=== PATIENT | male | born 1960 | race Caucasian/White ===

== ENCOUNTER 2023-07-23 05:51 | Emergency (ER) | payer MEDICAID ==
[~2023-07-23] VITALS: Ht 175.3 cm; Wt 122.0 kg
--- NOTE | 2023-07-23 06:36 | NUR ---
during general assessment pt stated he does not have any health conditions, only take OTC medications (ibuprofen, benadryl and cough syrup). at end of assessment pt says "i have been seeing things moving the last 2 days. i realize they arent real but i see bugs and insects crawling on the floor". pt says he has no psych hx.
[2023-07-23 07:50] LABS: BASOPHILS % (AUTO) 0.3 % (0-1); EOSINOPHILS # (AUTO) 0.1 X10'3 (0-0.9); EOSINOPHILS % (AUTO) 0.4 % (0-6); HEMATOCRIT 39.8 % (42.0-52.0); HEMOGLOBIN 13.4 g/dl (14.0-17.9); LYMPHOCYTES # (AUTO) 1.3 X10'3 (1.1-4.8); MEAN CORPUSCULAR HEMOGLOBIN 26.9 PG (27.0-31.0); MEAN CORPUSCULAR HGB CONC 33.6 g/dL (33.0-36.5); MEAN CORPUSCULAR VOLUME 80.2 FL (78-98); MEAN PLATELET VOLUME 7.6 FL (7.4-10.4); MONOCYTES # (AUTO) 1.2 X10'3 (0-0.9); MONOCYTES % (AUTO) 8.8 % (2-12); NEUTROPHILS # (AUTO) 10.7 X10'3 (1.8-7.7); NEUTROPHILS % (AUTO) 80.5 % (42-75); PLATELET COUNT 344 X10'3 (140-440); RED BLOOD COUNT 4.96 X10'6 (4.70-6.10); RED CELL DISTRIBUTION WIDTH 12.8 % (11.5-14.5); WHITE BLOOD COUNT 13.2 X10'3 (4.5-11.0)
[2023-07-23] MEDS ORDERED: azithromycin 250mg tablet PO ONE (08:10)
[2023-07-23] MEDS ORDERED: benzonatate 100mg capsule PO ONE (08:10)
[2023-07-23] MEDS ORDERED: BENZ-38 PO ×2 (08:14)
[2023-07-23] MEDS ORDERED: AZIT-164 PO ×2 (08:14)
[2023-07-23] MEDS ORDERED: FLO0.4C PO ×2 (08:28)
[2023-07-23 08:51] LABS: ANION GAP 15 (8-16); BILIRUBIN,TOTAL 0.6 MG/DL (0.1-1.0); BLOOD UREA NITROGEN 20 MG/DL (7-18); BUN/CREATININE RATIO 21.3 (10.0-20.0); CALCIUM 8.8 MG/DL (8.5-10.1); CHLORIDE 91 MMOL/L (99-107); CREATININE 0.94 MG/DL (0.60-1.10); GLUCOSE 96 MG/DL (70-104); POTASSIUM 3.3 MMOL/L (3.5-5.1); SODIUM 127 MMOL/L (135-145); TOTAL CARBON DIOXIDE 20.9 MMOL/L (24-32); TOTAL PROTEIN 7.5 G/DL (6.4-8.2); eCRCL 84 ML/MIN; eGFR 82 ML/MIN
[2023-07-23 08:52] LABS: ALANINE AMINOTRANSFERASE 59 U/L (12-78); ALBUMIN 3.1 G/DL (3.4-5.0); ALBUMIN/GLOBULIN RATIO 0.7 (1.1-1.5); ALKALINE PHOSPHATASE 99 IU/L (46-116); ASPARTATE AMINO TRANSFERASE 78 U/L (10-37)
[2023-07-23] MEDS ORDERED: POTA-207 PO ×2 (08:53)
[2023-07-23 09:17] VITALS: BP 144/84; PULSE 108; RESP 20; TEMP 97.8; O2SAT 97
== END 2023-07-23 09:21 | disposition home or self-care (01) ==
LOC: ER 05:52
DX: J20.9 Acute bronchitis, unspecified (principal); Z20.822 Contact with and (suspected) exposure to COVID-19; Z90.49 Acquired absence of other specified parts of digestive tract; Z79.899 Other long term (current) drug therapy
CPT/HCPCS: 36415; 71045; 80053; 85025; 87811; 99285

== ENCOUNTER 2023-07-26 09:16 | Inpatient (IN) | payer MEDICAID ==
[~2023-07-26] VITALS: Ht 177.8 cm; Wt 132.0 kg
[~2023-07-26 09:16] MED LIST: AZIT-164 PO; BENZ-38 PO; FLO0.4C PO; POTA-207 PO
[2023-07-26] MEDS ORDERED: ipratropium/albuterol 3ml nebule NEB ONE (09:50)
[2023-07-26] MEDS ORDERED: methylPREDNISolone sod succ 125mg/2ml vial IV ONE (09:50)
[2023-07-26 10:52] VITALS: PULSE 91; RESP 16; O2SAT 98
[2023-07-26 10:57] VITALS: PULSE 89; RESP 16; O2SAT 100
[2023-07-26 11:00] LABS: BASOPHILS % (AUTO) 0.3 % (0-1); EOSINOPHILS # (AUTO) 0.1 X10'3 (0-0.9); EOSINOPHILS % (AUTO) 1.1 % (0-6); HEMATOCRIT 34.6 % (42.0-52.0); HEMOGLOBIN 11.8 g/dl (14.0-17.9); LYMPHOCYTES # (AUTO) 1.1 X10'3 (1.1-4.8); LYMPHOCYTES % (AUTO) 8.8 % (21-51); MEAN CORPUSCULAR HEMOGLOBIN 26.9 PG (27.0-31.0); MEAN CORPUSCULAR VOLUME 79.2 FL (78-98); MEAN PLATELET VOLUME 7.5 FL (7.4-10.4); MONOCYTES # (AUTO) 0.9 X10'3 (0-0.9); MONOCYTES % (AUTO) 7.2 % (2-12); NEUTROPHILS % (AUTO) 82.6 % (42-75); PLATELET COUNT 414 X10'3 (140-440); RED BLOOD COUNT 4.37 X10'6 (4.70-6.10); RED CELL DISTRIBUTION WIDTH 12.3 % (11.5-14.5); WHITE BLOOD COUNT 12.1 X10'3 (4.5-11.0)
[2023-07-26 11:33] LABS: ALANINE AMINOTRANSFERASE 121 U/L (12-78); ALBUMIN 2.6 G/DL (3.4-5.0); ALBUMIN/GLOBULIN RATIO 0.7 (1.1-1.5); ALKALINE PHOSPHATASE 90 IU/L (46-116); ANION GAP 10 (8-16); ASPARTATE AMINO TRANSFERASE 111 U/L (10-37); BILIRUBIN,TOTAL 0.5 MG/DL (0.1-1.0); BLOOD UREA NITROGEN 4 MG/DL (7-18); BUN/CREATININE RATIO 6.8 (10.0-20.0); CALCIUM 7.9 MG/DL (8.5-10.1); CHLORIDE 82 MMOL/L (99-107); CREATININE 0.59 MG/DL (0.60-1.10); GLUCOSE 105 MG/DL (70-104); POTASSIUM 3.9 MMOL/L (3.5-5.1); PRO BRAIN NATRIURETIC PEPTIDE 88 PG/ML (0-125); TOTAL CARBON DIOXIDE 23.2 MMOL/L (24-32); TOTAL PROTEIN 6.4 G/DL (6.4-8.2); eCRCL 137 ML/MIN; eGFR > 90 ML/MIN
[2023-07-26 11:34] LABS: SODIUM 115 MMOL/L (135-145)
[2023-07-26 12:34] LABS: SODIUM 116 MMOL/L (135-145)
[2023-07-26] MEDS ORDERED: SODIUM CHLORIDE 3% IV ONE (12:50)
[2023-07-26] MEDS ORDERED: potassium Cl 40MEQ/1/2NS 520ml 520 ML IV PRN (14:45)
[2023-07-26] MEDS ORDERED: magnesium 4gm in 100ml NS 100 ML IV PRN (14:45)
[2023-07-26] MEDS ORDERED: ondansetron/PF 4mg/2ml inj IV PRN (14:45)
[2023-07-26] MEDS ORDERED: acetaminophen 325mg tablet PO PRN ×2 (14:45)
[2023-07-26] MEDS ORDERED: magnesium 2GM in 50ml NS 50 ML IV PRN (14:45)
[2023-07-26] MEDS ORDERED: potassium Cl 20 mEq SR tablet PO PRN ×2 (14:45)
[2023-07-26] MEDS ORDERED: magnesium Cl slow-release 64mg tablet PO PRN (14:45)
[2023-07-26 15:58] LABS: OSMOLALITY 239 MOSM/K (280-300)
[2023-07-26 17:44] VITALS: BP 156/79; PULSE 104; RESP 16; TEMP 97.6; O2SAT 100
[2023-07-26] MEDS ORDERED: guaiFENesin/DM/phenylephrine syrup 120ml bottle PO PRN (17:50)
[2023-07-26 20:00] VITALS: RESP 16
[2023-07-26] MEDS: normal saline 1000ml 1,000 ML IV SCH (20:05)
[2023-07-26] MEDS ORDERED: guaiFENesin 200 MG/10 ML oral syrup UD cup PO PRN (20:22)
[2023-07-26] MEDS: guaiFENesin 200 MG/10 ML oral syrup UD cup PO PRN (21:53)
[2023-07-26 22:00] VITALS: BP 160/64; PULSE 107; RESP 18; TEMP 99; O2SAT 100
[2023-07-27 00:23] LABS: SODIUM,URINE RANDOM < 15 MEQ/L
[2023-07-27 00:25] LABS: OSMOLALITY UA 178 MOSM/K (50-1400)
[2023-07-27 00:26] LABS: URINE AMPHETAMINE SCREEN NEGATIVE (Neg); URINE BARBITUATE SCREEN NEGATIVE (Neg); URINE BENZODIAZEPINES SCREEN NEGATIVE (Neg); URINE CANNABINOID SCREEN NEGATIVE (Neg); URINE COCAINE SCREEN NEGATIVE (Neg); URINE METHADONE SCREEN NEGATIVE (Neg); URINE OPIATE SCREEN NEGATIVE (Neg); URINE PHENCYCLIDINE SCREEN NEGATIVE (Neg)
[2023-07-27 02:00] VITALS: BP 117/51; PULSE 94; RESP 18; TEMP 98.6; O2SAT 100
[2023-07-27] MEDS: guaiFENesin 200 MG/10 ML oral syrup UD cup PO PRN ×2 (05:14→11:25)
[2023-07-27] MEDS: benzonatate 100mg capsule PO PRN ×2 (05:15→15:52)
[2023-07-27] MEDS: vancomycin/NS 1 GM ADD-VANTAGE 250 ML IV SCH ×3 (05:53→21:07)
[2023-07-27 06:00] VITALS: BP 154/69; PULSE 89; RESP 14; TEMP 98.5; O2SAT 100
[2023-07-27] MEDS: normal saline 1000ml 1,000 ML IV SCH ×2 (07:15→16:00)
[2023-07-27 07:32] LABS: BASOPHILS % (AUTO) 0.2 % (0-1); EOSINOPHILS % (AUTO) 0 % (0-6); HEMATOCRIT 37.4 % (42.0-52.0); HEMOGLOBIN 12.6 g/dl (14.0-17.9); LYMPHOCYTES % (AUTO) 6.8 % (21-51); MEAN CORPUSCULAR HGB CONC 33.6 g/dL (33.0-36.5); MEAN CORPUSCULAR VOLUME 80.3 FL (78-98); MONOCYTES # (AUTO) 1.2 X10'3 (0-0.9); MONOCYTES % (AUTO) 8.2 % (2-12); NEUTROPHILS # (AUTO) 12.3 X10'3 (1.8-7.7); NEUTROPHILS % (AUTO) 84.8 % (42-75); PLATELET COUNT 474 X10'3 (140-440); RED BLOOD COUNT 4.66 X10'6 (4.70-6.10); RED CELL DISTRIBUTION WIDTH 12.8 % (11.5-14.5); WHITE BLOOD COUNT 14.5 X10'3 (4.5-11.0)
[2023-07-27 08:28] LABS: ALANINE AMINOTRANSFERASE 183 U/L (12-78); ALBUMIN 2.6 G/DL (3.4-5.0); ALBUMIN/GLOBULIN RATIO 0.6 (1.1-1.5); ALKALINE PHOSPHATASE 101 IU/L (46-116); ANION GAP 12 (8-16); ASPARTATE AMINO TRANSFERASE 128 U/L (10-37); BILIRUBIN,TOTAL 0.3 MG/DL (0.1-1.0); BLOOD UREA NITROGEN 7 MG/DL (7-18); BUN/CREATININE RATIO 9.3 (10.0-20.0); CALCIUM 8.3 MG/DL (8.5-10.1); CHLORIDE 96 MMOL/L (99-107); CHOL/HDL RATIO 2.6 (0.00-4.99); CHOLESTEROL 123 MG/DL (0-200); CREATININE 0.75 MG/DL (0.60-1.10); GLUCOSE 111 MG/DL (70-104); HDL CHOLESTEROL 47 MG/DL (35-60); LDL CHOLESTEROL 55 MG/DL (50-100); POTASSIUM 3.5 MMOL/L (3.5-5.1); SODIUM 131 MMOL/L (135-145); TOTAL CARBON DIOXIDE 23.1 MMOL/L (24-32); TOTAL PROTEIN 6.8 G/DL (6.4-8.2); TRIGLYCERIDES 54 MG/DL (20-135); eCRCL 108 ML/MIN; eGFR > 90 ML/MIN
[2023-07-27] MEDS ORDERED: dextrose 5%-water 1,000 ML IV SCH (08:30)
[2023-07-27 08:40] LABS: HEMOGLOBIN A1C 5.7 % (4.5-6.2)
[2023-07-27] MEDS: enoxaparin 40mg/0.4ml syringe SUBCUT SCH (08:54)
[2023-07-27 10:00] VITALS: BP 141/69; PULSE 99; RESP 18; TEMP 97.9; O2SAT 98
[2023-07-27] MEDS ORDERED: FLU VACC QS2023-24(6MOS UP)/PF 60 MCG/0.5 ML SYRINGE IM ONE (10:00)
[2023-07-27] MEDS ORDERED: iohexol 300mg/ml 100ml inj. ONE (14:24)
[2023-07-27] MEDS ORDERED: NO HOME MEDS (16:26)
[2023-07-27 18:00] VITALS: BP 143/66; PULSE 95; RESP 15; TEMP 98.2; O2SAT 100
[2023-07-27 19:00] VITALS: RESP 26; O2SAT 99
[2023-07-27 22:00] VITALS: BP 141/69; PULSE 91; RESP 26; TEMP 98.5; O2SAT 99
[2023-07-28] MEDS: guaiFENesin 200 MG/10 ML oral syrup UD cup PO PRN ×3 (02:00→16:07)
[2023-07-28] MEDS ORDERED: VANCOMYCIN LEVEL IV ONE (05:30)
[2023-07-28 07:00] VITALS: BP 147/83; PULSE 97; RESP 17; TEMP 98.1; O2SAT 98
[2023-07-28 08:06] LABS: BASOPHILS # (AUTO) 0.1 X10'3 (0-0.2); BASOPHILS % (AUTO) 0.5 % (0-1); EOSINOPHILS # (AUTO) 0.2 X10'3 (0-0.9); EOSINOPHILS % (AUTO) 1.4 % (0-6); HEMATOCRIT 34.5 % (42.0-52.0); HEMOGLOBIN 11.5 g/dl (14.0-17.9); LYMPHOCYTES # (AUTO) 1.9 X10'3 (1.1-4.8); LYMPHOCYTES % (AUTO) 17.1 % (21-51); MEAN CORPUSCULAR HEMOGLOBIN 26.9 PG (27.0-31.0); MEAN CORPUSCULAR HGB CONC 33.5 g/dL (33.0-36.5); MEAN CORPUSCULAR VOLUME 80.4 FL (78-98); MEAN PLATELET VOLUME 7.1 FL (7.4-10.4); MONOCYTES # (AUTO) 1.1 X10'3 (0-0.9); MONOCYTES % (AUTO) 9.4 % (2-12); NEUTROPHILS % (AUTO) 71.6 % (42-75); PLATELET COUNT 473 X10'3 (140-440); RED BLOOD COUNT 4.29 X10'6 (4.70-6.10); WHITE BLOOD COUNT 11.2 X10'3 (4.5-11.0)
[2023-07-28] MEDS: enoxaparin 40mg/0.4ml syringe SUBCUT SCH (08:23)
[2023-07-28 08:34] LABS: ALANINE AMINOTRANSFERASE 193 U/L (12-78); ALBUMIN 2.2 G/DL (3.4-5.0); ALBUMIN/GLOBULIN RATIO 0.6 (1.1-1.5); ALKALINE PHOSPHATASE 86 IU/L (46-116); ANION GAP 8 (8-16); ASPARTATE AMINO TRANSFERASE 97 U/L (10-37); BILIRUBIN,TOTAL 0.3 MG/DL (0.1-1.0); BLOOD UREA NITROGEN 6 MG/DL (7-18); BUN/CREATININE RATIO 9.5 (10.0-20.0); CALCIUM 7.7 MG/DL (8.5-10.1); CHLORIDE 98 MMOL/L (99-107); CREATININE 0.63 MG/DL (0.60-1.10); GLUCOSE 101 MG/DL (70-104); POTASSIUM 3.5 MMOL/L (3.5-5.1); SODIUM 132 MMOL/L (135-145); TOTAL CARBON DIOXIDE 26.4 MMOL/L (24-32); TOTAL PROTEIN 5.9 G/DL (6.4-8.2); eCRCL 129 ML/MIN; eGFR > 90 ML/MIN
[2023-07-28 08:41] LABS: THYROID STIMULATING HORMONE 1.36 ulU/ml (0.34-4.50); VANCOMYCIN,TROUGH 8.5 ug/mL (10.0-20.0)
[2023-07-28] MEDS: CefTRIAXone 2gm/D5W 50ml BAG 50 ML IV SCH (09:17)
[2023-07-28] MEDS: vancomycin/NS 1 GM ADD-VANTAGE 250 ML IV SCH (09:55)
[2023-07-28] MEDS: benzonatate 100mg capsule PO PRN ×2 (09:56→19:42)
[2023-07-28 10:00] VITALS: BP 138/69; PULSE 99; RESP 22; TEMP 98.9; O2SAT 97
[2023-07-28] MEDS: normal saline 1000ml 1,000 ML IV SCH (12:00)
[2023-07-28 15:00] VITALS: BP 145/80; PULSE 105; RESP 16; TEMP 98.2; O2SAT 96
[2023-07-28] MEDS: VANCOmycin 1250MG/NS 250ml Bag 250 ML IV SCH (17:19)
[2023-07-28 18:00] VITALS: BP 138/70; PULSE 86; RESP 16; TEMP 98.2; O2SAT 99
[2023-07-28] MEDS: sennosides/docusate sodium tablet PO SCH (19:42)
[2023-07-28] MEDS: docusate sod 100mg capsule PO SCH (19:47)
[2023-07-28 20:00] VITALS: RESP 16; O2SAT 99
[2023-07-28 22:00] VITALS: BP 137/68; PULSE 81; RESP 16; TEMP 97.3; O2SAT 100
[2023-07-29] VITALS (8 sets, daily range): BP systolic 143–155; BP diastolic 71–81; PULSE 77–98; RESP 10–22; TEMP 97.1–98.9; O2SAT 95–100
[2023-07-29] MEDS: guaiFENesin 200 MG/10 ML oral syrup UD cup PO PRN ×4 (01:26→20:05)
[2023-07-29] MEDS: VANCOmycin 1250MG/NS 250ml Bag 250 ML IV SCH ×2 (01:27→08:39)
[2023-07-29] MEDS: enoxaparin 40mg/0.4ml syringe SUBCUT SCH (07:06)
[2023-07-29] MEDS: CefTRIAXone 2gm/D5W 50ml BAG 50 ML IV SCH (07:06)
[2023-07-29] MEDS: sennosides/docusate sodium tablet PO SCH ×2 (07:06→19:08)
[2023-07-29] MEDS: docusate sod 100mg capsule PO SCH ×2 (07:06→19:08)
[2023-07-29 08:14] LABS: BASOPHILS # (AUTO) 0.1 X10'3 (0-0.2); BASOPHILS % (AUTO) 0.8 % (0-1); EOSINOPHILS # (AUTO) 0.3 X10'3 (0-0.9); EOSINOPHILS % (AUTO) 2.5 % (0-6); HEMATOCRIT 35.2 % (42.0-52.0); HEMOGLOBIN 11.6 g/dl (14.0-17.9); LYMPHOCYTES # (AUTO) 1.9 X10'3 (1.1-4.8); LYMPHOCYTES % (AUTO) 16.9 % (21-51); MEAN CORPUSCULAR HEMOGLOBIN 26.7 PG (27.0-31.0); MEAN CORPUSCULAR VOLUME 81.1 FL (78-98); MEAN PLATELET VOLUME 6.8 FL (7.4-10.4); MONOCYTES % (AUTO) 8.9 % (2-12); NEUTROPHILS % (AUTO) 70.9 % (42-75); PLATELET COUNT 445 X10'3 (140-440); RED BLOOD COUNT 4.35 X10'6 (4.70-6.10); RED CELL DISTRIBUTION WIDTH 13.3 % (11.5-14.5); WHITE BLOOD COUNT 11.2 X10'3 (4.5-11.0)
[2023-07-29 08:47] LABS: ALANINE AMINOTRANSFERASE 152 U/L (12-78); ALBUMIN 2.3 G/DL (3.4-5.0); ALBUMIN/GLOBULIN RATIO 0.6 (1.1-1.5); ALKALINE PHOSPHATASE 88 IU/L (46-116); ANION GAP 6 (8-16); ASPARTATE AMINO TRANSFERASE 51 U/L (10-37); BILIRUBIN,TOTAL 0.3 MG/DL (0.1-1.0); BLOOD UREA NITROGEN 7 MG/DL (7-18); BUN/CREATININE RATIO 12.7 (10.0-20.0); CALCIUM 8.2 MG/DL (8.5-10.1); CHLORIDE 98 MMOL/L (99-107); CREATININE 0.55 MG/DL (0.60-1.10); GLUCOSE 111 MG/DL (70-104); POTASSIUM 3.5 MMOL/L (3.5-5.1); SODIUM 131 MMOL/L (135-145); TOTAL CARBON DIOXIDE 26.8 MMOL/L (24-32); TOTAL PROTEIN 6.4 G/DL (6.4-8.2); eCRCL 147 ML/MIN; eGFR > 90 ML/MIN
[2023-07-29 09:43] LABS: TOTAL CELLS COUNTED 100
[2023-07-29 09:44] LABS: BURR CELLS 1+; ELLIPTOCYTES 1+; PLATELET ESTIMATE INCREASED
[2023-07-29] MEDS: cefazolin 2gm/D5W 100mL 100 ML IV SCH ×3 (09:56→23:20)
[2023-07-29] MEDS ORDERED: benzocaine/menthol oral lozeng 1 EACH BOX MM PRN (10:20)
[2023-07-29] MEDS ORDERED: HALLS - SOOTHE MENTHOL 1.8 MG cough drop LOZENGE MM PRN (10:30)
[2023-07-29] MEDS: benzonatate 100mg capsule PO PRN ×2 (11:18→22:35)
[2023-07-29] MEDS: HALLS - SOOTHE MENTHOL 1.8 MG cough drop LOZENGE MM PRN ×2 (15:00→18:02)
[2023-07-29] MEDS ORDERED: VANCOMYCIN LEVEL IV ONE (16:30)
[2023-07-29] MEDS: loratadine 10mg tablet PO SCH (20:05)
[2023-07-30] VITALS (7 sets, daily range): BP systolic 136–148; BP diastolic 69–85; PULSE 71–104; RESP 8–20; TEMP 97.5–98.2; O2SAT 94–100
[2023-07-30] MEDS: HALLS - SOOTHE MENTHOL 1.8 MG cough drop LOZENGE MM PRN ×4 (02:27→23:23)
[2023-07-30] MEDS: guaiFENesin 200 MG/10 ML oral syrup UD cup PO PRN ×4 (02:59→23:23)
[2023-07-30] MEDS: sennosides/docusate sodium tablet PO SCH ×2 (08:00→20:00)
[2023-07-30] MEDS: docusate sod 100mg capsule PO SCH ×2 (08:00→20:00)
[2023-07-30] MEDS: cefazolin 2gm/D5W 100mL 100 ML IV SCH ×2 (08:54→17:00)
[2023-07-30] MEDS: benzonatate 100mg capsule PO PRN ×2 (08:54→19:10)
[2023-07-30] MEDS: enoxaparin 40mg/0.4ml syringe SUBCUT SCH (09:00)
[2023-07-30 09:32] LABS: BASOPHILS # (AUTO) 0.1 X10'3 (0-0.2); BASOPHILS % (AUTO) 0.6 % (0-1); EOSINOPHILS # (AUTO) 0.4 X10'3 (0-0.9); EOSINOPHILS % (AUTO) 3.5 % (0-6); HEMATOCRIT 40.1 % (42.0-52.0); HEMOGLOBIN 13.2 g/dl (14.0-17.9); LYMPHOCYTES # (AUTO) 1.8 X10'3 (1.1-4.8); LYMPHOCYTES % (AUTO) 16.1 % (21-51); MEAN CORPUSCULAR HEMOGLOBIN 27.1 PG (27.0-31.0); MEAN CORPUSCULAR HGB CONC 32.9 g/dL (33.0-36.5); MEAN CORPUSCULAR VOLUME 82.3 FL (78-98); MEAN PLATELET VOLUME 7.2 FL (7.4-10.4); MONOCYTES % (AUTO) 9.2 % (2-12); NEUTROPHILS # (AUTO) 7.8 X10'3 (1.8-7.7); NEUTROPHILS % (AUTO) 70.6 % (42-75); PLATELET COUNT 506 X10'3 (140-440); RED BLOOD COUNT 4.88 X10'6 (4.70-6.10); RED CELL DISTRIBUTION WIDTH 13.4 % (11.5-14.5); WHITE BLOOD COUNT 11.1 X10'3 (4.5-11.0)
[2023-07-30 10:04] LABS: ALANINE AMINOTRANSFERASE 131 U/L (12-78); ALBUMIN 2.5 G/DL (3.4-5.0); ALBUMIN/GLOBULIN RATIO 0.5 (1.1-1.5); ALKALINE PHOSPHATASE 99 IU/L (46-116); ANION GAP 7 (8-16); ASPARTATE AMINO TRANSFERASE 41 U/L (10-37); BILIRUBIN,TOTAL 0.4 MG/DL (0.1-1.0); BLOOD UREA NITROGEN 5 MG/DL (7-18); BUN/CREATININE RATIO 8.1 (10.0-20.0); CALCIUM 8.6 MG/DL (8.5-10.1); CHLORIDE 97 MMOL/L (99-107); CREATININE 0.62 MG/DL (0.60-1.10); GLUCOSE 106 MG/DL (70-104); POTASSIUM 3.7 MMOL/L (3.5-5.1); SODIUM 131 MMOL/L (135-145); TOTAL CARBON DIOXIDE 26.8 MMOL/L (24-32); TOTAL PROTEIN 7.1 G/DL (6.4-8.2); eCRCL 131 ML/MIN; eGFR > 90 ML/MIN
[2023-07-30] MEDS: loratadine 10mg tablet PO SCH (20:56)
[2023-07-31] MEDS: cefazolin 2gm/D5W 100mL 100 ML IV SCH ×2 (00:13→07:32)
[2023-07-31 02:00] VITALS: BP 154/79; PULSE 85; RESP 14; TEMP 98.2; O2SAT 97
[2023-07-31] MEDS: HALLS - SOOTHE MENTHOL 1.8 MG cough drop LOZENGE MM PRN ×3 (03:10→11:56)
[2023-07-31] MEDS: benzonatate 100mg capsule PO PRN ×2 (05:04→13:27)
[2023-07-31 06:00] VITALS: BP 134/75; PULSE 97; RESP 16; TEMP 97.3; O2SAT 100
[2023-07-31] MEDS: guaiFENesin 200 MG/10 ML oral syrup UD cup PO PRN (07:26)
[2023-07-31] MEDS: enoxaparin 40mg/0.4ml syringe SUBCUT SCH (07:30)
[2023-07-31] MEDS: docusate sod 100mg capsule PO SCH (07:31)
[2023-07-31] MEDS: loratadine 10mg tablet PO SCH (07:32)
[2023-07-31] MEDS: sennosides/docusate sodium tablet PO SCH (07:32)
[2023-07-31 08:00] VITALS: RESP 18
[2023-07-31 09:29] LABS: BASOPHILS # (AUTO) 0.1 X10'3 (0-0.2); BASOPHILS % (AUTO) 0.8 % (0-1); EOSINOPHILS # (AUTO) 0.4 X10'3 (0-0.9); HEMATOCRIT 39.9 % (42.0-52.0); HEMOGLOBIN 13.2 g/dl (14.0-17.9); LYMPHOCYTES # (AUTO) 1.5 X10'3 (1.1-4.8); LYMPHOCYTES % (AUTO) 14.4 % (21-51); MEAN CORPUSCULAR HEMOGLOBIN 27.1 PG (27.0-31.0); MEAN CORPUSCULAR VOLUME 82.2 FL (78-98); MEAN PLATELET VOLUME 6.8 FL (7.4-10.4); MONOCYTES # (AUTO) 0.9 X10'3 (0-0.9); MONOCYTES % (AUTO) 8.1 % (2-12); NEUTROPHILS # (AUTO) 7.7 X10'3 (1.8-7.7); NEUTROPHILS % (AUTO) 72.7 % (42-75); PLATELET COUNT 513 X10'3 (140-440); RED BLOOD COUNT 4.86 X10'6 (4.70-6.10); RED CELL DISTRIBUTION WIDTH 13.7 % (11.5-14.5); WHITE BLOOD COUNT 10.6 X10'3 (4.5-11.0)
[2023-07-31 09:39] LABS: ALANINE AMINOTRANSFERASE 84 U/L (12-78); ALBUMIN 2.4 G/DL (3.4-5.0); ALBUMIN/GLOBULIN RATIO 0.6 (1.1-1.5); ALKALINE PHOSPHATASE 100 IU/L (46-116); ANION GAP 5 (8-16); ASPARTATE AMINO TRANSFERASE 29 U/L (10-37); BILIRUBIN,TOTAL 0.3 MG/DL (0.1-1.0); BLOOD UREA NITROGEN 7 MG/DL (7-18); BUN/CREATININE RATIO 11.9 (10.0-20.0); CALCIUM 8.4 MG/DL (8.5-10.1); CHLORIDE 99 MMOL/L (99-107); CREATININE 0.59 MG/DL (0.60-1.10); GLUCOSE 129 MG/DL (70-104); POTASSIUM 3.3 MMOL/L (3.5-5.1); SODIUM 134 MMOL/L (135-145); TOTAL CARBON DIOXIDE 29.6 MMOL/L (24-32); TOTAL PROTEIN 6.7 G/DL (6.4-8.2); eCRCL 137 ML/MIN; eGFR > 90 ML/MIN
[2023-07-31] MEDS ORDERED: LORA10TA65 PO (10:49)
[2023-07-31] MEDS ORDERED: GUAI600T45 PO (10:49)
[2023-07-31] MEDS ORDERED: MENT5.8L12 MM (10:49)
[2023-07-31 11:00] VITALS: BP 146/80; PULSE 100; RESP 11; TEMP 98.8; O2SAT 96
[2023-07-31] MEDS ORDERED: potassium Cl 20 mEq SR tablet PO STA (12:05)
== END 2023-07-31 14:50 | disposition home or self-care (01) | DRG 720 ==
LOC: ER 09:17 → PCU 3S 14:50 → OBSVTOIN 14:50 → INTOOBSV 14:50 → UNDOADMOB 14:50 → ED HOLD 14:50 → EDBEDREQ 15:09 → PCU 3S 17:27 → ED HOLD 17:27 → UNDOADMOB 07-27 09:23 → OBSVTOIN 07-27 09:23 → INTOOBSV 07-27 09:23 → ED HOLD 07-27 09:23 → PCU 3S 07-27 09:23
PROVIDERS: ADMIT Internal Medicine; ATTEND Internal Medicine
PROC: 05HC33Z Insertion of Infusion Device into Left Basilic Vein, Percutaneous Approach (ICD-10-PCS; principal; 2023-07-31)
PROC: B54NZZA Ultrasonography of Left Upper Extremity Veins, Guidance (ICD-10-PCS; 2023-07-31)
DX: A41.01 Sepsis due to Methicillin susceptible Staphylococcus aureus (principal); E22.2 Syndrome of inappropriate secretion of antidiuretic hormone; J18.9 Pneumonia, unspecified organism; N40.0 Benign prostatic hyperplasia without lower urinary tract symptoms; J20.9 Acute bronchitis, unspecified; Z20.822 Contact with and (suspected) exposure to COVID-19; E66.9 Obesity, unspecified; Z90.49 Acquired absence of other specified parts of digestive tract; Z79.899 Other long term (current) drug therapy; Z68.41 Body mass index [BMI] 40.0-44.9, adult
CPT/HCPCS: 36410; 36415; 71045; 71260; 76536; 76942; 80053; 80061; 80202; 80305; 82570; 83036; 83605; 83880; 83930; 83935; 84133; 84145; 84295; 84300; 84439; 84443; 84484; 84540; 85007; 85025; 87040; 87077; 87081; 87186; 87502; 87503; 87811; 90686; 93306; 94640; 94760; 97161; 97530; 99285; A6212; A6250; C1751; G0378; J0690; J0696; J1650; J2930; J3370; J3490; J7030; J7040; J7070; J7131; Q9967